=== PATIENT | female | born 1960 | race African-American/Black ===

== ENCOUNTER 2016-06-24 10:49 | Day surgery (SDC) | payer OTHER ==
[~2016-06-24 10:49] MED LIST: AMOXICILLIN500 MG PO; BENADRYL50 MG PO; BYSTOLIC10 MG PO; CARDIZEM CD,CA180 MG PO; CARDIZEM120 MG PO; CATAPRES0.2 MG PO; CLONIDINE HCL0.1 MG PO; CLONIDINE HCL0.2 MG PO; CLONIDINE HCL0.3 MG PO; COREG25 M1 PO; DIALYVITE 3,001 EACH PO; DOXAZOSIN MESYLA4 MG PO; LABETALOL HCL200 MG PO; MEGACE40 MG PO; MEGESTROL ACETA40 MG PO; METOCLOPRAMIDE10 MG PO; NIFEDIPINE ER60 MG PO; NIFEDIPINE ER90 M1 PO; PERCOCET 5/31 TABLET PO; RENVELA800 MG PO; SENSIPAR60 MG PO; VENTOLIN HFA18 GM IH; WARFARIN SODIUM5 MG PO; ZITHROMAX250 MG PO
[2016-06-24 12:58] LABS: METH RESISTANT S AUREUS PCR NEGATIVE (NEGATIVE)
[2016-06-24 12:59] LABS: PROBE CHECK PASS; SPECIMEN PROCESSING CONTROL PASS
== END 2016-06-24 15:45 | disposition home or self-care (01) ==
LOC: CATH 10:49
PROVIDERS: Surgery
DX: T82.868A Thrombosis due to vascular prosthetic devices, implants and grafts, initial encounter (principal); T82.858A Stenosis of other vascular prosthetic devices, implants and grafts, initial encounter; Y83.2 Surgical operation with anastomosis, bypass or graft as the cause of abnormal reaction of the patient, or of later complication, without mention of misadventure at the time of the procedure; I12.0 Hypertensive chronic kidney disease with stage 5 chronic kidney disease or end stage renal disease; N18.6 End stage renal disease; Z99.2 Dependence on renal dialysis; Z88.8 Allergy status to other drugs, medicaments and biological substances
CPT/HCPCS: 87641; C1725; C1757; C1769; C1894; C2628; J0360; J0690; J1644; J2250; J3010; S0020

== ENCOUNTER 2016-11-11 09:43 | Inpatient (IN) | payer OTHER ==
[~2016-11-11] VITALS: Ht 152.4 cm; Wt 59.2 kg
[2016-11-11 10:24] LABS: EOSINOPHIL (%) 1.6 % (0-5); EOSINOPHIL COUNT 0.1 K/uL (0-0.3); HEMATOCRIT 37.4 % (36.0-46.0); IMMATURE GRANULOCYTE (%) 0.5 % (0.0-0.7); INSTRUMENT ABS NEUTROPHIL CT 7.3 K/uL; LYMPHOCYTE COUNT 0.5 K/uL (1.0-2.8); MCH 28.1 PG (29.0-34.0); MCHC 32.4 G/DL (30.0-36.0); MEAN PLAT.VOLUME 11.9 uM^3 (9.5-12.4); MONOCYTE (%) 2.2 % (3-12); MONOCYTE COUNT 0.2 K/uL (0-0.8); NEUTROPHIL (%) 89.5 % (45-76); NEUTROPHIL COUNT 7.3 K/uL (1.8-6.4); PLATELET COUNT 119 K/uL (156-360); RBC DIS.WIDTH-CV 17.7 % (11.8-14.6); RBC DIS.WIDTH-SD 55.9 % (39-53); WHITE BLOOD COUNT 8.2 K/uL (4.1-10.2)
[2016-11-11 10:30] LABS: INTER. NORMALIZED RATIO 1.4
[2016-11-11 10:32] LABS: PTT 45.2 SEC (25-37)
[2016-11-11 10:33] LABS: CHLORIDE 96 mEq/L (99-109); POTASSIUM 4.2 mEq/L (3.7-5.4); SODIUM 138 mEq/L (136-147)
[2016-11-11 10:35] LABS: GLUCOSE 73 mg/dL (70-99)
[2016-11-11 10:36] LABS: ANION GAP 17 MEQ/L (2-14)
[2016-11-11 10:39] LABS: ALKALINE PHOSPHATASE 181 IU/L (3-129); GFR ESTIMATE (CALCULATED) 9 mL/min/
[2016-11-11 10:40] LABS: UREA NITROGEN (BUN) 53 mg/dL (9-23)
[2016-11-11 10:48] LABS: TROP-I INTERPRETATION NEGATIVE; TROPONIN-I 0.06 ng/mL (0.0-0.30)
[2016-11-11 13:42] LABS: MAGNESIUM 2.2 mg/dL (1.3-2.7)
[2016-11-11] MEDS ORDERED: LABETALOL HCL100 MG PO (14:08)
[2016-11-11] MEDS ORDERED: FLOVENT 11120 INHALA IH (14:11)
[2016-11-11 16:13] VITALS: BP 158/98
[2016-11-11 16:21] VITALS: BP 115/80
[2016-11-11 19:15] VITALS: BP 103/76
[2016-11-12] VITALS (7 sets, daily range): BP systolic 82–152; BP diastolic 60–80
[2016-11-12 12:40] LABS: HEMATOCRIT 34.6 % (36.0-46.0); MCH 28.4 PG (29.0-34.0); MCHC 31.8 G/DL (30.0-36.0); MCV 89.2 FL (83-99); PLATELET COUNT 103 K/uL (156-360); RBC DIS.WIDTH-CV 18.5 % (11.8-14.6); RBC DIS.WIDTH-SD 59.7 % (39-53); RED BLOOD COUNT 3.88 M/uL (3.80-5.20)
[2016-11-12 12:48] LABS: ANION GAP 11 MEQ/L (2-14); CHLORIDE 95 MEQ/L (99-109); SAMPLE HEMOLYSIS CHECK 0; SAMPLE ICTERIC CHECK 0; SAMPLE LIPEMIA CHECK 0; SODIUM 133 MEQ/L (136-147); UREA NITROGEN (BUN) 69 mg/dL (9-23)
[2016-11-12 12:50] LABS: GFR ESTIMATE (CALCULATED) 8 mL/min/; GLUCOSE 133 mg/dL (70-99); POTASSIUM 5.6 MEQ/L (3.7-5.4)
[2016-11-12 12:52] LABS: ABS NEUTROPHIL COUNT 10.5; ANISOCYTOSIS 2+; BAND NEUTROPHILS 15.6 % (0-8.0); BURR CELLS 2+; EOSINOPHIL ABS CT 0.1; EOSINOPHILS 0.9 % (0-5.0); LYMPHOCYTES 0.9 % (15.0-45.0); MACROCYTES 2+; OVALOCYTES 2+; PLAT.SUFFICIENCY DECREASED; POIKILOCYTOSIS 3+; TARGET CELLS 1+
[2016-11-12 19:58] LABS: ADD MIUA? YES; BILIRUBIN NEGATIVE; BLOOD NEGATIVE; COLOR YELLOW ((YELLOW)); GLUCOSE (STRIP) NEGATIVE; KETONES NEGATIVE; LEUKOCYTES NEGATIVE; NITRITE NEGATIVE; PROTEIN (STRIP) 100; SPECIFIC GRAVITY 1.012 (1.000-1.030); UROBILINOGEN 0.2 MG/DL (0.2-1.0)
[2016-11-12 20:21] LABS: BACTERIA RARE /HPF; EPITHELIAL CELLS 1+ /HPF; MUCUS TRACE /LPF; RED BLOOD CELLS 0-5 /HPF (0-5); UCUL ADDED? NO; WHITE BLOOD CELLS 0-5 /HPF (0-5)
[2016-11-13] VITALS (9 sets, daily range): BP systolic 94–170; BP diastolic 57–104
[2016-11-13 08:01] LABS: EOSINOPHIL (%) 8.7 % (0-5); EOSINOPHIL COUNT 0.7 K/uL (0-0.3); HEMATOCRIT 31.5 % (36.0-46.0); IMMATURE GRANULOCYTE (%) 0.5 % (0.0-0.7); INSTRUMENT ABS NEUTROPHIL CT 5.1 K/uL; LYMPHOCYTE COUNT 0.9 K/uL (1.0-2.8); MCH 29.2 PG (29.0-34.0); MCHC 32.7 G/DL (30.0-36.0); MCV 89.2 FL (83-99); MONOCYTE (%) 10.9 % (3-12); MONOCYTE COUNT 0.8 K/uL (0-0.8); NEUTROPHIL (%) 67.3 % (45-76); NEUTROPHIL COUNT 5.1 K/uL (1.8-6.4); RBC DIS.WIDTH-CV 18.4 % (11.8-14.6); RBC DIS.WIDTH-SD 60.1 % (39-53); RED BLOOD COUNT 3.53 M/uL (3.80-5.20); WHITE BLOOD COUNT 7.6 K/uL (4.1-10.2)
[2016-11-13 08:28] LABS: ANION GAP 13 MEQ/L (2-14); CHLORIDE 95 MEQ/L (99-109); GLUCOSE 160 mg/dL (70-99); SAMPLE HEMOLYSIS CHECK 0; SAMPLE ICTERIC CHECK 0; SAMPLE LIPEMIA CHECK 0; SODIUM 134 MEQ/L (136-147)
[2016-11-13 08:32] LABS: GFR ESTIMATE (CALCULATED) 13 mL/min/; POTASSIUM 3.7 MEQ/L (3.7-5.4); UREA NITROGEN (BUN) 32 mg/dL (9-23)
[2016-11-13 08:35] LABS: MEAN PLAT.VOLUME 13.6 uM^3 (9.5-12.4); PLAT.SUFFICIENCY DECREASED; PLATELET COUNT 102 K/uL (156-360)
[2016-11-13 13:35] LABS: INTER. NORMALIZED RATIO 1.4; PROTHROMBIN TIME 15.2 SEC (10.2-12.9)
[2016-11-14] VITALS (9 sets, daily range): BP systolic 128–194; BP diastolic 80–102
[2016-11-14 06:33] LABS: INTER. NORMALIZED RATIO 1.3
[2016-11-14 13:39] LABS: ANION GAP 12 MEQ/L (2-14); CHLORIDE 95 MEQ/L (99-109); SAMPLE HEMOLYSIS CHECK 0; SAMPLE ICTERIC CHECK 0; SAMPLE LIPEMIA CHECK 0; SODIUM 134 MEQ/L (136-147)
[2016-11-14 13:44] LABS: GFR ESTIMATE (CALCULATED) 13 mL/min/; GLUCOSE 131 mg/dL (70-99); UREA NITROGEN (BUN) 32 mg/dL (9-23)
[2016-11-14 17:06] LABS: BASE EXCESS 1.8 mEq/L (-3 to +3); BICARBONATE 27.2 mEq/L (22-26); METHEMOGLOBIN 1.3 % (0-1.5); PCO2 45 mm Hg (35-45); PO2 56 mm Hg (80-100); pH 7.39 (7.35-7.45)
[2016-11-14 17:07] LABS: COMMENTS - BLOOD GASES A+C+; DEVICE NC; O2 FLOW 3.5 L/MIN; SITE RR; TOTAL RESP RATE 22 resp/min
[2016-11-14 17:11] LABS: HEMATOCRIT 37.2 % (36.0-46.0); MCV 91.9 FL (83-99)
[2016-11-14 17:46] LABS: TROP-I INTERPRETATION NEGATIVE; TROPONIN-I 0.06 ng/mL (0.0-0.30)
[2016-11-14 20:22] LABS: TROP-I INTERPRETATION NEGATIVE; TROPONIN-I 0.05 ng/mL (0.0-0.30)
[2016-11-15 00:23] VITALS: BP 95/60
[2016-11-15 02:22] LABS: TROP-I INTERPRETATION NEGATIVE; TROPONIN-I 0.04 ng/mL (0.0-0.30)
[2016-11-15 02:35] LABS: INTER. NORMALIZED RATIO 1.4; PROTHROMBIN TIME 15.1 SEC (10.2-12.9)
[2016-11-15 05:42] VITALS: BP 165/88
[2016-11-15 08:00] VITALS: BP 163/79
[2016-11-15 09:32] LABS: TROP-I INTERPRETATION NEGATIVE; TROPONIN-I 0.07 ng/mL (0.0-0.30)
[2016-11-15 09:57] LABS: HEMATOCRIT 31.4 % (36.0-46.0); MCHC 31.8 G/DL (30.0-36.0); RBC DIS.WIDTH-CV 17.8 % (11.8-14.6); RBC DIS.WIDTH-SD 56.6 % (39-53); RED BLOOD COUNT 3.57 M/uL (3.80-5.20); WHITE BLOOD COUNT 10.7 K/uL (4.1-10.2)
[2016-11-15 10:17] LABS: ABS NEUTROPHIL COUNT 7.9; ANISOCYTOSIS 2+; ATYPICAL LYMPHOCYTE 0.9 %; BAND NEUTROPHILS 7.1 % (0-8.0); BURR CELLS 2+; EOSINOPHILS 9.7 % (0-5.0); HEMATOLOGY COMMENT 1 SN; INSTRUMENT ABS NEUTROPHIL CT 7.7 K/uL; LYMPHOCYTES 11.5 % (15.0-45.0); MACROCYTES 1+; OVALOCYTES 1+; PLAT.SUFFICIENCY DECREASED; PLATELET COUNT 80 K/uL (156-360); POIKILOCYTOSIS 1+; SCHISTOCYTES 1+; SEG.NEUTROPHILS 66.4 % (46.0-76.0)
[2016-11-15 13:40] LABS: ANION GAP 12 MEQ/L (2-14); CHLORIDE 93 MEQ/L (99-109); POTASSIUM 4.3 MEQ/L (3.7-5.4); SAMPLE HEMOLYSIS CHECK 0; SAMPLE ICTERIC CHECK 0; SAMPLE LIPEMIA CHECK 0; SODIUM 130 MEQ/L (136-147)
[2016-11-15 13:47] LABS: GFR ESTIMATE (CALCULATED) 9 mL/min/; GLUCOSE 141 mg/dL (70-99)
[2016-11-15 13:48] LABS: UREA NITROGEN (BUN) 50 mg/dL (9-23)
[2016-11-15 16:54] VITALS: BP 158/92
[2016-11-15 19:35] VITALS: BP 160/82
[2016-11-15 23:09] VITALS: BP 122/71
[2016-11-16 04:05] VITALS: BP 138/78
[2016-11-16 05:58] LABS: INTER. NORMALIZED RATIO 1.5; PROTHROMBIN TIME 16.2 SEC (10.2-12.9)
[2016-11-16 06:18] LABS: EOSINOPHIL (%) 7.4 % (0-5); EOSINOPHIL COUNT 0.8 K/uL (0-0.3); HEMATOCRIT 29.2 % (36.0-46.0); IMMATURE GRANULOCYTE (%) 0.5 % (0.0-0.7); IMMATURE GRANULOCYTE COUNT 0.1 K/uL; LYMPHOCYTE COUNT 0.9 K/uL (1.0-2.8); MCH 29.5 PG (29.0-34.0); MCHC 33.9 G/DL (30.0-36.0); MCV 86.9 FL (83-99); MONOCYTE (%) 11.5 % (3-12); MONOCYTE COUNT 1.3 K/uL (0-0.8); NEUTROPHIL (%) 71.9 % (45-76); RBC DIS.WIDTH-SD 56.7 % (39-53); RED BLOOD COUNT 3.36 M/uL (3.80-5.20); WHITE BLOOD COUNT 11.2 K/uL (4.1-10.2)
[2016-11-16 06:24] LABS: ANION GAP 11 MEQ/L (2-14); CHLORIDE 95 MEQ/L (99-109); GFR ESTIMATE (CALCULATED) 15 mL/min/; POTASSIUM 4.2 MEQ/L (3.7-5.4); SAMPLE HEMOLYSIS CHECK 0; SAMPLE ICTERIC CHECK 0; SAMPLE LIPEMIA CHECK 0; SODIUM 132 MEQ/L (136-147); UREA NITROGEN (BUN) 26 mg/dL (9-23)
[2016-11-16 06:25] LABS: GLUCOSE 96 mg/dL (70-99)
[2016-11-16 07:34] LABS: PLAT.SUFFICIENCY DECREASED; PLATELET COUNT 88 K/uL (156-360)
[2016-11-16 08:00] VITALS: BP 144/82
[2016-11-16 14:22] VITALS: BP 98/56
[2016-11-16 16:52] VITALS: BP 114/73
[2016-11-16 20:06] VITALS: BP 132/76
[2016-11-16 23:18] VITALS: BP 115/71
[2016-11-17 03:25] VITALS: BP 117/75
[2016-11-17 06:47] LABS: INTER. NORMALIZED RATIO 1.7; PROTHROMBIN TIME 18.9 SEC (10.2-12.9)
[2016-11-17 07:33] VITALS: BP 129/66
[2016-11-17 16:56] VITALS: BP 125/76
[2016-11-17 21:15] VITALS: BP 138/81
[2016-11-17 23:41] VITALS: BP 98/62
[2016-11-18 04:00] VITALS: BP 139/62
[2016-11-18 04:41] LABS: INTER. NORMALIZED RATIO 2.6
[2016-11-18 04:58] LABS: PROTHROMBIN TIME 30.2 SEC (10.2-12.9)
[2016-11-18 04:59] LABS: TROP-I INTERPRETATION NEGATIVE
[2016-11-18 05:14] LABS: CHLORIDE 91 mEq/L (99-109); SODIUM 126 mEq/L (136-147)
[2016-11-18 05:15] LABS: MAGNESIUM 2.1 mg/dL (1.3-2.7)
[2016-11-18 05:17] LABS: GLUCOSE 113 mg/dL (70-99); POTASSIUM 5.7 mEq/L (3.7-5.4)
[2016-11-18 05:18] LABS: ANION GAP 15 MEQ/L (2-14)
[2016-11-18 05:20] LABS: GFR ESTIMATE (CALCULATED) 8 mL/min/
[2016-11-18 05:24] LABS: UREA NITROGEN (BUN) 57 mg/dL (9-23)
[2016-11-18 07:05] LABS: BASOPHIL COUNT 0.1 K/uL (0-0.1); EOSINOPHIL (%) 6.4 % (0-5); EOSINOPHIL COUNT 0.6 K/uL (0-0.3); HEMATOCRIT 27.6 % (36.0-46.0); IMMATURE GRANULOCYTE (%) 2.3 % (0.0-0.7); IMMATURE GRANULOCYTE COUNT 0.2 K/uL; INSTRUMENT ABS NEUTROPHIL CT 6.6 K/uL; LYMPHOCYTE COUNT 1.5 K/uL (1.0-2.8); MCH 29.5 PG (29.0-34.0); MCHC 34.8 G/DL (30.0-36.0); MCV 84.9 FL (83-99); MONOCYTE (%) 9.9 % (3-12); NEUTROPHIL COUNT 6.6 K/uL (1.8-6.4); RBC DIS.WIDTH-CV 17.8 % (11.8-14.6); RBC DIS.WIDTH-SD 54.8 % (39-53); RED BLOOD COUNT 3.25 M/uL (3.80-5.20)
[2016-11-18 07:13] LABS: ANION GAP 14 MEQ/L (2-14); CHLORIDE 90 MEQ/L (99-109); GFR ESTIMATE (CALCULATED) 8 mL/min/; GLUCOSE 93 mg/dL (70-99); SAMPLE HEMOLYSIS CHECK 0; SAMPLE ICTERIC CHECK 0; SAMPLE LIPEMIA CHECK 0; SODIUM 126 MEQ/L (136-147); UREA NITROGEN (BUN) 59 mg/dL (9-23)
[2016-11-18 07:25] VITALS: BP 110/68
[2016-11-18 07:41] LABS: HEMATOLOGY COMMENT 1 SMEAR COMPATIBLE; PLAT.SUFFICIENCY DECREASED
[2016-11-18 07:43] LABS: PLATELET COUNT 115 K/uL (156-360)
[2016-11-18 12:07] LABS: ANION GAP 12 MEQ/L (2-14); CHLORIDE 96 MEQ/L (99-109); GLUCOSE 84 mg/dL (70-99); SAMPLE HEMOLYSIS CHECK 0; SAMPLE ICTERIC CHECK 0; SAMPLE LIPEMIA CHECK 0
[2016-11-18 12:09] LABS: GFR ESTIMATE (CALCULATED) 25 mL/min/; POTASSIUM 3.2 MEQ/L (3.7-5.4); SODIUM 135 MEQ/L (136-147); UREA NITROGEN (BUN) 15 mg/dL (9-23)
[2016-11-18 13:28] LABS: ANION GAP 12 MEQ/L (2-14); CHLORIDE 97 MEQ/L (99-109); GFR ESTIMATE (CALCULATED) 20 mL/min/; GLUCOSE 89 mg/dL (70-99); POTASSIUM 3.6 MEQ/L (3.7-5.4); SAMPLE HEMOLYSIS CHECK 0; SAMPLE ICTERIC CHECK 0; SAMPLE LIPEMIA CHECK 0; SODIUM 136 MEQ/L (136-147); UREA NITROGEN (BUN) 18 mg/dL (9-23)
[2016-11-18 16:51] VITALS: BP 112/60; BP 164/94
[2016-11-18 20:00] VITALS: BP 143/79
[2016-11-18 23:13] VITALS: BP 143/76
[2016-11-19 06:53] LABS: INTER. NORMALIZED RATIO 3.1; PROTHROMBIN TIME 35.4 SEC (10.2-12.9)
[2016-11-19 07:14] VITALS: BP 123/70
[2016-11-19 11:37] VITALS: BP 110/68
[2016-11-19 16:03] VITALS: BP 117/68
[2016-11-19 20:19] VITALS: BP 108/64
[2016-11-20 00:31] VITALS: BP 99/56
[2016-11-20 04:20] VITALS: BP 119/65
[2016-11-20 08:30] LABS: INTER. NORMALIZED RATIO 2.6; PROTHROMBIN TIME 29.4 SEC (10.2-12.9)
[2016-11-20 08:37] LABS: HEMATOCRIT 25.5 % (36.0-46.0); MCH 28.4 PG (29.0-34.0); MCHC 32.9 G/DL (30.0-36.0); MCV 86.1 FL (83-99); RBC DIS.WIDTH-CV 18.1 % (11.8-14.6); RBC DIS.WIDTH-SD 55.8 % (39-53); RED BLOOD COUNT 2.96 M/uL (3.80-5.20); WHITE BLOOD COUNT 10.4 K/uL (4.1-10.2)
[2016-11-20 08:38] LABS: MEAN PLAT.VOLUME 11.6 uM^3 (9.5-12.4); PLATELET COUNT 160 K/uL (156-360)
[2016-11-20 08:48] LABS: BASOPHIL COUNT 0.1 K/uL (0-0.1); EOSINOPHIL COUNT 0.7 K/uL (0-0.3); IMMATURE GRANULOCYTE (%) 1.2 % (0.0-0.7); IMMATURE GRANULOCYTE COUNT 0.1 K/uL; INSTRUMENT ABS NEUTROPHIL CT 7.4 K/uL; LYMPHOCYTE COUNT 1.3 K/uL (1.0-2.8); MONOCYTE COUNT 0.8 K/uL (0-0.8); NEUTROPHIL (%) 70.6 % (45-76); NEUTROPHIL COUNT 7.4 K/uL (1.8-6.4)
[2016-11-20 09:10] LABS: ANION GAP 12 MEQ/L (2-14); CHLORIDE 92 MEQ/L (99-109); GFR ESTIMATE (CALCULATED) 8 mL/min/; POTASSIUM 3.6 MEQ/L (3.7-5.4); SAMPLE HEMOLYSIS CHECK 0; SAMPLE ICTERIC CHECK 0; SAMPLE LIPEMIA CHECK 0; SODIUM 130 MEQ/L (136-147)
[2016-11-20 09:16] LABS: GLUCOSE 113 mg/dL (70-99); UREA NITROGEN (BUN) 43 mg/dL (9-23)
[2016-11-20 15:29] VITALS: BP 124/68
[2016-11-20 20:05] VITALS: BP 118/66
[2016-11-21 00:10] VITALS: BP 110/64
[2016-11-21 05:23] VITALS: BP 117/70
[2016-11-21 06:16] LABS: INTER. NORMALIZED RATIO 2.4; PROTHROMBIN TIME 26.8 SEC (10.2-12.9)
[2016-11-21 08:31] VITALS: BP 120/67
[2016-11-21 11:00] VITALS: BP 124/71
[2016-11-21 16:23] VITALS: BP 120/62
[2016-11-21 20:39] VITALS: BP 117/63
[2016-11-22 00:21] VITALS: BP 95/53
[2016-11-22 04:19] VITALS: BP 101/51
[2016-11-22 08:30] VITALS: BP 121/66
[2016-11-22 10:10] LABS: BASOPHIL COUNT 0.1 K/uL (0-0.1); EOSINOPHIL (%) 4.7 % (0-5); EOSINOPHIL COUNT 0.6 K/uL (0-0.3); IMMATURE GRANULOCYTE COUNT 0.1 K/uL; INSTRUMENT ABS NEUTROPHIL CT 9.6 K/uL; MCH 28.9 PG (29.0-34.0); MCHC 33.2 G/DL (30.0-36.0); MCV 87.1 FL (83-99); MEAN PLAT.VOLUME 11.9 uM^3 (9.5-12.4); NEUTROPHIL (%) 77.5 % (45-76); NEUTROPHIL COUNT 9.6 K/uL (1.8-6.4); RBC DIS.WIDTH-CV 18.2 % (11.8-14.6); RBC DIS.WIDTH-SD 57.2 % (39-53); RED BLOOD COUNT 2.87 M/uL (3.80-5.20); WHITE BLOOD COUNT 12.3 K/uL (4.1-10.2)
[2016-11-22 10:12] LABS: PLATELET COUNT 221 K/uL (156-360)
[2016-11-22 10:16] LABS: ANION GAP 13 MEQ/L (2-14); CHLORIDE 92 MEQ/L (99-109); GFR ESTIMATE (CALCULATED) 9 mL/min/; GLUCOSE 90 mg/dL (70-99); SAMPLE HEMOLYSIS CHECK 1; SAMPLE ICTERIC CHECK 0; SAMPLE LIPEMIA CHECK 0; SODIUM 128 MEQ/L (136-147); UREA NITROGEN (BUN) 48 mg/dL (9-23)
[2016-11-22 10:20] LABS: POTASSIUM 4.8 MEQ/L (3.7-5.4)
[2016-11-22 10:24] LABS: INTER. NORMALIZED RATIO 2.6; PROTHROMBIN TIME 29.4 SEC (10.2-12.9)
[2016-11-22 15:00] VITALS: BP 106/65
[2016-11-22 19:15] VITALS: BP 121/60; BP 2/60
[2016-11-23] VITALS (7 sets, daily range): BP systolic 80–131; BP diastolic 52–82
[2016-11-23 06:29] LABS: BASOPHIL COUNT 0.1 K/uL (0-0.1); EOSINOPHIL (%) 3.4 % (0-5); EOSINOPHIL COUNT 0.4 K/uL (0-0.3); HEMATOCRIT 27.3 % (36.0-46.0); IMMATURE GRANULOCYTE (%) 0.7 % (0.0-0.7); IMMATURE GRANULOCYTE COUNT 0.1 K/uL; INSTRUMENT ABS NEUTROPHIL CT 9.7 K/uL; LYMPHOCYTE COUNT 1.1 K/uL (1.0-2.8); MCH 28.4 PG (29.0-34.0); MCHC 32.2 G/DL (30.0-36.0); MCV 88.1 FL (83-99); MEAN PLAT.VOLUME 11.7 uM^3 (9.5-12.4); MONOCYTE (%) 7.6 % (3-12); MONOCYTE COUNT 0.9 K/uL (0-0.8); NEUTROPHIL COUNT 9.7 K/uL (1.8-6.4); PLATELET COUNT 265 K/uL (156-360); RBC DIS.WIDTH-CV 18.4 % (11.8-14.6); RBC DIS.WIDTH-SD 58.5 % (39-53); WHITE BLOOD COUNT 12.3 K/uL (4.1-10.2)
[2016-11-23 06:36] LABS: INTER. NORMALIZED RATIO 2.9; PROTHROMBIN TIME 33.7 SEC (10.2-12.9)
[2016-11-23 06:59] LABS: ANION GAP 11 MEQ/L (2-14); CHLORIDE 93 MEQ/L (99-109); GLUCOSE 104 mg/dL (70-99); SAMPLE HEMOLYSIS CHECK 0; SAMPLE ICTERIC CHECK 0; SAMPLE LIPEMIA CHECK 0; SODIUM 130 MEQ/L (136-147); UREA NITROGEN (BUN) 43 mg/dL (9-23)
[2016-11-23 07:00] LABS: GFR ESTIMATE (CALCULATED) 12 mL/min/; POTASSIUM 5.8 MEQ/L (3.7-5.4)
[2016-11-24] VITALS: BP 99/59
[2016-11-24 04:00] VITALS: BP 114/56
[2016-11-24 06:34] LABS: INTER. NORMALIZED RATIO 2.7; PROTHROMBIN TIME 30.6 SEC (10.2-12.9)
[2016-11-24 07:34] VITALS: BP 110/72
[2016-11-24 08:51] LABS: BASOPHIL COUNT 0.1 K/uL (0-0.1); EOSINOPHIL (%) 5.7 % (0-5); EOSINOPHIL COUNT 0.6 K/uL (0-0.3); HEMATOCRIT 26.7 % (36.0-46.0); IMMATURE GRANULOCYTE (%) 0.9 % (0.0-0.7); IMMATURE GRANULOCYTE COUNT 0.1 K/uL; INSTRUMENT ABS NEUTROPHIL CT 7.1 K/uL; LYMPHOCYTE COUNT 1.6 K/uL (1.0-2.8); MCH 29.2 PG (29.0-34.0); MCV 88.7 FL (83-99); MEAN PLAT.VOLUME 13.1 uM^3 (9.5-12.4); MONOCYTE (%) 8.7 % (3-12); MONOCYTE COUNT 0.9 K/uL (0-0.8); NEUTROPHIL (%) 68.5 % (45-76); NEUTROPHIL COUNT 7.1 K/uL (1.8-6.4); PLATELET COUNT 261 K/uL (156-360); RBC DIS.WIDTH-CV 18.4 % (11.8-14.6); RBC DIS.WIDTH-SD 58.7 % (39-53); RED BLOOD COUNT 3.01 M/uL (3.80-5.20); WHITE BLOOD COUNT 10.4 K/uL (4.1-10.2)
[2016-11-24 09:09] LABS: ANION GAP 13 MEQ/L (2-14); CHLORIDE 89 MEQ/L (99-109); GLUCOSE 94 mg/dL (70-99); SAMPLE HEMOLYSIS CHECK 0; SAMPLE ICTERIC CHECK 0; SAMPLE LIPEMIA CHECK 0; SODIUM 125 MEQ/L (136-147); UREA NITROGEN (BUN) 60 mg/dL (9-23)
[2016-11-24 09:14] LABS: GFR ESTIMATE (CALCULATED) 8 mL/min/; POTASSIUM 6.6 MEQ/L (3.7-5.4)
[2016-11-24 11:28] VITALS: BP 127/69
[2016-11-24 14:08] LABS: ALKALINE PHOSPHATASE 279 IU/L (3-129); ANION GAP 17 MEQ/L (2-14); CHLORIDE 89 MEQ/L (99-109); GFR ESTIMATE (CALCULATED) 8 mL/min/; POTASSIUM 5.5 MEQ/L (3.7-5.4); SAMPLE HEMOLYSIS CHECK 0; SAMPLE ICTERIC CHECK 0; SAMPLE LIPEMIA CHECK 0; SODIUM 128 MEQ/L (136-147); TOTAL BILIRUBIN 0.7 MG/DL (0.0-1.0); UREA NITROGEN (BUN) 62 mg/dL (9-23)
[2016-11-24 14:09] LABS: GLUCOSE 56 mg/dL (70-99)
[2016-11-24 15:06] LABS: POINT-OF-CARE METER ID UU13113774
[2016-11-24 15:48] VITALS: BP 133/91
[2016-11-24 20:34] VITALS: BP 123/69
[2016-11-25] VITALS (7 sets, daily range): BP systolic 101–129; BP diastolic 64–79
[2016-11-25 08:56] LABS: BASOPHIL COUNT 0.1 K/uL (0-0.1); EOSINOPHIL (%) 5.2 % (0-5); EOSINOPHIL COUNT 0.5 K/uL (0-0.3); HEMATOCRIT 24.7 % (36.0-46.0); IMMATURE GRANULOCYTE (%) 0.7 % (0.0-0.7); IMMATURE GRANULOCYTE COUNT 0.1 K/uL; INSTRUMENT ABS NEUTROPHIL CT 7.4 K/uL; MCHC 32.4 G/DL (30.0-36.0); MCV 86.4 FL (83-99); MONOCYTE (%) 7.3 % (3-12); MONOCYTE COUNT 0.7 K/uL (0-0.8); NEUTROPHIL (%) 75.9 % (45-76); NEUTROPHIL COUNT 7.4 K/uL (1.8-6.4); PLATELET COUNT 308 K/uL (156-360); RBC DIS.WIDTH-CV 17.6 % (11.8-14.6); RBC DIS.WIDTH-SD 55.3 % (39-53); RED BLOOD COUNT 2.86 M/uL (3.80-5.20); WHITE BLOOD COUNT 9.7 K/uL (4.1-10.2)
[2016-11-25 09:13] LABS: INTER. NORMALIZED RATIO 3.6; PROTHROMBIN TIME 42.1 SEC (10.2-12.9)
[2016-11-25 09:15] LABS: ANION GAP 15 MEQ/L (2-14); CHLORIDE 87 MEQ/L (99-109); GFR ESTIMATE (CALCULATED) 7 mL/min/; POTASSIUM 5.3 MEQ/L (3.7-5.4); SAMPLE HEMOLYSIS CHECK 0; SAMPLE ICTERIC CHECK 0; SAMPLE LIPEMIA CHECK 0; SODIUM 126 MEQ/L (136-147); UREA NITROGEN (BUN) 73 mg/dL (9-23)
[2016-11-25 09:18] LABS: GLUCOSE 91 mg/dL (70-99)
[2016-11-25 11:57] LABS: HBSG INDEX 0.19
[2016-11-26 07:05] LABS: INTER. NORMALIZED RATIO 2.7; PROTHROMBIN TIME 30.7 SEC (10.2-12.9)
[2016-11-26 07:07] LABS: BASOPHIL COUNT 0.1 K/uL (0-0.1); EOSINOPHIL (%) 4.8 % (0-5); EOSINOPHIL COUNT 0.4 K/uL (0-0.3); HEMATOCRIT 26.6 % (36.0-46.0); IMMATURE GRANULOCYTE (%) 0.5 % (0.0-0.7); INSTRUMENT ABS NEUTROPHIL CT 5.9 K/uL; LYMPHOCYTE COUNT 1.1 K/uL (1.0-2.8); MCH 28.6 PG (29.0-34.0); MCHC 31.6 G/DL (30.0-36.0); MEAN PLAT.VOLUME 11.7 uM^3 (9.5-12.4); MONOCYTE (%) 8.8 % (3-12); MONOCYTE COUNT 0.7 K/uL (0-0.8); NEUTROPHIL COUNT 5.9 K/uL (1.8-6.4); PLATELET COUNT 339 K/uL (156-360); RBC DIS.WIDTH-CV 18.2 % (11.8-14.6); RBC DIS.WIDTH-SD 59.5 % (39-53); RED BLOOD COUNT 2.94 M/uL (3.80-5.20); WHITE BLOOD COUNT 8.3 K/uL (4.1-10.2)
[2016-11-26 07:08] LABS: MCV 90.5 FL (83-99)
[2016-11-26 07:27] LABS: ANION GAP 13 MEQ/L (2-14); GLUCOSE 98 mg/dL (70-99); POTASSIUM 5.2 MEQ/L (3.7-5.4); SAMPLE HEMOLYSIS CHECK 0; SAMPLE ICTERIC CHECK 0; SAMPLE LIPEMIA CHECK 0
[2016-11-26 07:32] LABS: CHLORIDE 96 MEQ/L (99-109); GFR ESTIMATE (CALCULATED) 12 mL/min/; SODIUM 134 MEQ/L (136-147); UREA NITROGEN (BUN) 33 mg/dL (9-23)
[2016-11-26 07:45] VITALS: BP 109/60
[2016-11-26 11:30] VITALS: BP 115/77
[2016-11-26] MEDS ORDERED: LABETALOL HCL200 MG PO (11:43)
[2016-11-26] MEDS ORDERED: COUMADIN2 MG PO (11:46)
[2016-11-26] MEDS ORDERED: ANCEF,KEFZOL1 GM IV (11:46)
[2016-11-26] MEDS ORDERED: VORICONAZOLE200 MG PO (11:46)
== END 2016-11-26 14:38 | disposition home or self-care (01) | DRG 252 ==
LOC: EME → EDBD 09:43 → 4EAST 12:56 → EDOF 12:56 → ENRESERV 12:58 → 4EAST 15:24 → ENRESERV 11-13 13:43 → 3EAST 11-13 17:52 → ENRESERV 11-14 17:00 → 4EAST 11-14 18:04 → ENRESERV 11-16 14:07 → 5EAST 11-16 17:30 → ENPENDDIS 11-26 → 5EAST 11-26 14:38
PROVIDERS: Emergency Medicine; Hospitalist; Internal Medicine Nephrology; Physician Assistant; Student in an Organized Health Care Education/Training Program
PROC: 5A1D70Z Performance of Urinary Filtration, Intermittent, Less than 6 Hours Per Day (ICD-10-PCS; 2016-11-12)
PROC: 02HV33Z Insertion of Infusion Device into Superior Vena Cava, Percutaneous Approach (ICD-10-PCS; principal; 2016-11-15)
PROC: 03WY0JZ Revision of Synthetic Substitute in Upper Artery, Open Approach (ICD-10-PCS; 2016-11-18)
DX: T82.7XXA Infection and inflammatory reaction due to other cardiac and vascular devices, implants and grafts, initial encounter (principal); Y83.2 Surgical operation with anastomosis, bypass or graft as the cause of abnormal reaction of the patient, or of later complication, without mention of misadventure at the time of the procedure; A41.51 Sepsis due to Escherichia coli [E. coli]; B49 Unspecified mycosis; D69.6 Thrombocytopenia, unspecified; E87.5 Hyperkalemia; I13.2 Hypertensive heart and chronic kidney disease with heart failure and with stage 5 chronic kidney disease, or end stage renal disease; I27.20 Pulmonary hypertension, unspecified; I27.82 Chronic pulmonary embolism; I47.2 Ventricular tachycardia; I48.0 Paroxysmal atrial fibrillation; I48.2 Chronic atrial fibrillation; I50.32 Chronic diastolic (congestive) heart failure; J18.9 Pneumonia, unspecified organism; J96.01 Acute respiratory failure with hypoxia; N18.6 End stage renal disease; R65.20 Severe sepsis without septic shock; I95.3 Hypotension of hemodialysis; Z91.128 Patient's intentional underdosing of medication regimen for other reason; T45.516A Underdosing of anticoagulants, initial encounter; Z91.11 Patient's noncompliance with dietary regimen; Z99.2 Dependence on renal dialysis; H11.32 Conjunctival hemorrhage, left eye; E78.5 Hyperlipidemia, unspecified; M79.602 Pain in left arm; R10.84 Generalized abdominal pain; R11.2 Nausea with vomiting, unspecified; R16.2 Hepatomegaly with splenomegaly, not elsewhere classified; R42 Dizziness and giddiness; R51 Headache; F17.200 Nicotine dependence, unspecified, uncomplicated; Z79.01 Long term (current) use of anticoagulants; Z82.3 Family history of stroke; Z82.49 Family history of ischemic heart disease and other diseases of the circulatory system; Z88.1 Allergy status to other antibiotic agents
CPT/HCPCS: 36600; 71010; 71275; 74174; 74176; 76705; 80048; 80048 91; 80053; 80069; 80202; 81003; 82803; 82948; 83605; 83735; 84100; 84484; 85014; 85018; 85025; 85610; 85730; 86850; 86900; 86901; 87040; 87070; 87075; 87077; 87107; 87149; 87149 59; 87186; 87205; 87340; 87801; 93005; 93306; 93970; 94010; 94640; 94640 76; 94760; 94799; 97530 GO; 99202; 99281; 99284; C1752; C1757; C1768; C2628; J0610; J0690; J0696; J1200; J1644; J1940; J2250; J2405; J2720; J3010; J3370; J7030; J7050

== ENCOUNTER 2017-04-30 14:31 | Day surgery (SDC) | payer OTHER ==
[~2017-04-30] VITALS: Ht 154.9 cm; Wt 50.0 kg
[~2017-04-30 14:31] MED LIST changes: +ANCEF,KEFZOL1 GM IV; +COUMADIN2 MG PO; +FLOVENT 11120 INHALA IH; +LABETALOL HCL100 MG PO; +VFEND200 MG PO; +VORICONAZOLE200 MG PO
[2017-04-30] MEDS ORDERED: CEPHALEXIN500 MG PO (15:00)
[2017-04-30 15:32] LABS: HEMOGLOBIN 11.7 G/DL (11.9-15.5); MCH 30.5 PG (29.0-34.0); MCHC 33.4 G/DL (30.0-36.0); MCV 91.4 FL (83-99); PLATELET COUNT 167 K/uL (156-360); RBC DIS.WIDTH-CV 16.2 % (11.8-14.6); RBC DIS.WIDTH-SD 53.1 % (39-53); RED BLOOD COUNT 3.83 M/uL (3.80-5.20); WHITE BLOOD COUNT 7.1 K/uL (4.1-10.2)
[2017-04-30 15:47] VITALS: BP 137/85
[2017-04-30 15:50] LABS: CHLORIDE 92 mEq/L (99-109); SODIUM 138 mEq/L (136-147)
[2017-04-30 15:52] LABS: GLUCOSE 103 mg/dL (70-99)
[2017-04-30 15:56] LABS: CREATININE 4.5 mg/dL (0.6-1.3); GFR ESTIMATE (CALCULATED) 13 mL/min/
[2017-04-30 15:57] LABS: UREA NITROGEN (BUN) 32 mg/dL (9-23)
[2017-04-30 19:57] LABS: HEMATOCRIT 29.6 % (36.0-46.0); MCH 29.5 PG (29.0-34.0); MCHC 31.4 G/DL (30.0-36.0); PLATELET COUNT 154 K/uL (156-360); RBC DIS.WIDTH-CV 16.1 % (11.8-14.6); RBC DIS.WIDTH-SD 54.6 % (39-53); RED BLOOD COUNT 3.15 M/uL (3.80-5.20); WHITE BLOOD COUNT 7.2 K/uL (4.1-10.2)
[2017-04-30 19:58] LABS: HEMOGLOBIN 9.3 G/DL (11.9-15.5)
[2017-04-30 21:37] LABS: CHLORIDE 95 MEQ/L (99-109); CREATININE 4.6 MG/DL (0.6-1.3); GFR ESTIMATE (CALCULATED) 13 mL/min/; GLUCOSE 100 mg/dL (70-99); SODIUM 143 MEQ/L (136-147); UREA NITROGEN (BUN) 33 mg/dL (9-23)
[2017-04-30 21:38] LABS: POTASSIUM 3.7 MEQ/L (3.7-5.4)
[2017-04-30 22:28] VITALS: BP 164/96
[2017-05-01 03:48] VITALS: BP 111/69
[2017-05-01 06:57] LABS: BASOPHIL (%) 0.5 % (0-1); EOSINOPHIL (%) 4.8 % (0-5); HEMATOCRIT 26.4 % (36.0-46.0); HEMOGLOBIN 8.4 G/DL (11.9-15.5); LYMPHOCYTE (%) 11.3 % (15-42); MCH 30.1 PG (29.0-34.0); MCHC 31.8 G/DL (30.0-36.0); MCV 94.6 FL (83-99); NEUTROPHIL (%) 74.1 % (45-76); PLATELET COUNT 158 K/uL (156-360); RED BLOOD COUNT 2.79 M/uL (3.80-5.20); WHITE BLOOD COUNT 6.2 K/uL (4.1-10.2)
[2017-05-01 06:58] LABS: EOSINOPHIL COUNT 0.3 K/uL (0-0.3); IMMATURE GRANULOCYTE (%) 0.3 % (0.0-0.7); LYMPHOCYTE COUNT 0.7 K/uL (1.0-2.8); MONOCYTE COUNT 0.6 K/uL (0-0.8); NEUTROPHIL COUNT 4.6 K/uL (1.8-6.4)
[2017-05-01 07:07] VITALS: BP 134/87
[2017-05-01] MEDS ORDERED: KEFLEX500 MG PO (09:09)
[2017-05-01] MEDS ORDERED: ENDOCET 5-3251 EACH PO (09:09)
[2017-05-01 15:21] VITALS: BP 119/73
== END 2017-05-01 18:04 | disposition home or self-care (01) ==
LOC: SDC 14:31 → 2EAST 19:00 → 2SOUTH 19:00 → ENRESERV 19:09 → 2EAST 22:08 → ENPENDDIS 05-01 10:35 → 2EAST 05-01 18:04
PROVIDERS: Surgery
PROC: 05WY0JZ Revision of Synthetic Substitute in Upper Vein, Open Approach (ICD-10-PCS; principal; 2017-04-30)
DX: T82.868A Thrombosis due to vascular prosthetic devices, implants and grafts, initial encounter (principal); Y83.2 Surgical operation with anastomosis, bypass or graft as the cause of abnormal reaction of the patient, or of later complication, without mention of misadventure at the time of the procedure; I12.0 Hypertensive chronic kidney disease with stage 5 chronic kidney disease or end stage renal disease; N18.6 End stage renal disease; Z99.2 Dependence on renal dialysis; I48.91 Unspecified atrial fibrillation; J45.909 Unspecified asthma, uncomplicated; Z87.891 Personal history of nicotine dependence
CPT/HCPCS: 80048; 80048 91; 82948; 84132 91; 85025; 85027; 87641; 93005; 94640; 94799; 99202; C1757; C1768; C2628; G0378; J0131; J0690; J1170; J1644; J2250; J2405; J2720; J3010; J7040; S0020

== ENCOUNTER 2017-05-28 07:21 | Emergency (ER) | payer OTHER ==
[~2017-05-28] VITALS: Ht 160 cm; Wt 53.6 kg
[~2017-05-28 07:21] MED LIST changes: +CEPHALEXIN500 MG PO; +ENDOCET 5-3251 EACH PO; +KEFLEX500 MG PO
[2017-05-28 11:21] VITALS: BP 163/109
== END 2017-05-28 11:22 | disposition home or self-care (01) ==
LOC: EME 07:21
DX: S70.02XA Contusion of left hip, initial encounter (principal); S83.92XA Sprain of unspecified site of left knee, initial encounter; S50.312A Abrasion of left elbow, initial encounter; V87.8XXA Person injured in other specified noncollision transport accidents involving motor vehicle (traffic), initial encounter; I12.0 Hypertensive chronic kidney disease with stage 5 chronic kidney disease or end stage renal disease; N18.6 End stage renal disease; Z99.2 Dependence on renal dialysis; M16.0 Bilateral primary osteoarthritis of hip; I51.7 Cardiomegaly; R16.0 Hepatomegaly, not elsewhere classified; Z87.891 Personal history of nicotine dependence; Z85.9 Personal history of malignant neoplasm, unspecified; Z90.710 Acquired absence of both cervix and uterus; Z88.5 Allergy status to narcotic agent; Z88.1 Allergy status to other antibiotic agents; Z88.8 Allergy status to other drugs, medicaments and biological substances
CPT/HCPCS: 73502; 73564; 99281; 99284

== ENCOUNTER 2017-06-06 08:04 | Emergency (ER) | payer OTHER ==
[~2017-06-06] VITALS: Ht 154.9 cm; Wt 55.8 kg
[2017-06-06 09:20] LABS: HEMATOCRIT 30.6 % (36.0-46.0); HEMOGLOBIN 9.9 G/DL (11.9-15.5); MCH 31.1 PG (29.0-34.0); MCHC 32.4 G/DL (30.0-36.0); MCV 96.2 FL (83-99); PLATELET COUNT 151 K/uL (156-360); RBC DIS.WIDTH-CV 17.2 % (11.8-14.6); RBC DIS.WIDTH-SD 58.6 % (39-53); RED BLOOD COUNT 3.18 M/uL (3.80-5.20)
[2017-06-06 09:29] LABS: CHLORIDE 93 mEq/L (99-109); POTASSIUM 4.5 mEq/L (3.7-5.4); SODIUM 140 mEq/L (136-147)
[2017-06-06 09:31] LABS: GLUCOSE 138 mg/dL (70-99)
[2017-06-06 09:35] LABS: GFR ESTIMATE (CALCULATED) 8 mL/min/
[2017-06-06 09:36] LABS: UREA NITROGEN (BUN) 88 mg/dL (9-23)
[2017-06-06] MEDS ORDERED: VENTOLIN HFA18 GM IH (11:41)
[2017-06-06] MEDS ORDERED: ULTRAM50 MG PO (11:41)
[2017-06-06] MEDS ORDERED: VIBRAMYCIN100 MG PO (11:41)
[2017-06-06] MEDS ORDERED: DEBROX15 ML BOTH EARS (12:15)
[2017-06-06 12:19] VITALS: BP 97/69
== END 2017-06-06 12:49 | disposition home or self-care (01) ==
LOC: EME 08:04
PROVIDERS: Nurse Practitioner Family
DX: J32.9 Chronic sinusitis, unspecified (principal); R06.2 Wheezing; N18.6 End stage renal disease; Z99.2 Dependence on renal dialysis; R51 Headache; M25.561 Pain in right knee; M25.562 Pain in left knee; J90 Pleural effusion, not elsewhere classified; Z87.891 Personal history of nicotine dependence; Z88.1 Allergy status to other antibiotic agents; Z88.5 Allergy status to narcotic agent
CPT/HCPCS: 70450; 71046; 73502; 73564; 80048; 85027; 93005; 94640; 99281; 99285

== ENCOUNTER 2017-07-29 08:18 | Day surgery (SDC) | payer OTHER ==
[~2017-07-29 08:18] MED LIST changes: +DEBROX15 ML BOTH EARS; +ULTRAM50 MG PO; +VIBRAMYCIN100 MG PO
[2017-07-29] MEDS ORDERED: SENSIPAR60 MG PO ×2 (08:50→15:29)
[2017-07-29] MEDS ORDERED: KEFLEX500 MG PO (15:31)
[2017-07-29] MEDS ORDERED: PERCOCET 5/31 TABLET PO (15:33)
== END 2017-07-29 10:45 | disposition home or self-care (01) ==
LOC: CATH 08:18
DX: I12.0 Hypertensive chronic kidney disease with stage 5 chronic kidney disease or end stage renal disease (principal); N18.6 End stage renal disease; Z99.2 Dependence on renal dialysis
CPT/HCPCS: 87641; C1750; C1894; J0690; J1644; J2250; J3010; S0020

== ENCOUNTER 2017-07-30 09:08 | Day surgery (SDC) | payer OTHER ==
[~2017-07-30] VITALS: Ht 152.4 cm; Wt 51.1 kg
[~2017-07-30 09:08] MED LIST changes: -DIALYVITE 3,001 EACH PO; +DIALYVITE 801 TABLET PO
[2017-07-30 10:06] LABS: HEMOGLOBIN 10.9 G/DL (11.9-15.5); MCH 29.7 PG (29.0-34.0); MCHC 32.1 G/DL (30.0-36.0); MCV 92.6 FL (83-99); PLATELET COUNT 199 K/uL (156-360); RBC DIS.WIDTH-SD 54.2 % (39-53); RED BLOOD COUNT 3.67 M/uL (3.80-5.20); WHITE BLOOD COUNT 6.9 K/uL (4.1-10.2)
[2017-07-30 10:12] VITALS: BP 183/99
[2017-07-30 10:15] LABS: CHLORIDE 95 MEQ/L (99-109); SODIUM 140 MEQ/L (136-147)
[2017-07-30 10:21] LABS: CREATININE 7.1 MG/DL (0.6-1.3); GFR ESTIMATE (CALCULATED) 8 mL/min/; GLUCOSE 106 mg/dL (70-99); UREA NITROGEN (BUN) 55 mg/dL (9-23)
[2017-07-30 16:39] VITALS: BP 184/111
[2017-07-30 17:24] VITALS: BP 186/109
== END 2017-07-30 17:35 | disposition home or self-care (01) ==
LOC: SDC 09:08
PROVIDERS: Surgery
PROC: 0XP70YZ Removal of Other Device from Left Upper Extremity, Open Approach (ICD-10-PCS; principal; 2017-07-30)
DX: T82.7XXA Infection and inflammatory reaction due to other cardiac and vascular devices, implants and grafts, initial encounter (principal); Y83.2 Surgical operation with anastomosis, bypass or graft as the cause of abnormal reaction of the patient, or of later complication, without mention of misadventure at the time of the procedure; I12.0 Hypertensive chronic kidney disease with stage 5 chronic kidney disease or end stage renal disease; N18.6 End stage renal disease; Z99.2 Dependence on renal dialysis; Z87.891 Personal history of nicotine dependence; I48.91 Unspecified atrial fibrillation; J45.909 Unspecified asthma, uncomplicated
CPT/HCPCS: 71046; 80048; 85027; 93005; J0690; J1170; J1644; J2405; J2720; J3010; S0020

== ENCOUNTER 2017-08-05 19:07 | Emergency (ER) | payer OTHER ==
[~2017-08-05] VITALS: Ht 160 cm; Wt 53.5 kg
[2017-08-05 20:15] LABS: BASOPHIL (%) 0.7 % (0-1); BASOPHIL COUNT 0.1 K/uL (0-0.1); EOSINOPHIL (%) 6.9 % (0-5); EOSINOPHIL COUNT 0.6 K/uL (0-0.3); HEMATOCRIT 31.2 % (36.0-46.0); HEMOGLOBIN 10.4 G/DL (11.9-15.5); IMMATURE GRANULOCYTE (%) 0.2 % (0.0-0.7); LYMPHOCYTE (%) 14.8 % (15-42); LYMPHOCYTE COUNT 1.4 K/uL (1.0-2.8); MCH 30.2 PG (29.0-34.0); MCHC 33.3 G/DL (30.0-36.0); MCV 90.7 FL (83-99); MONOCYTE (%) 5.8 % (3-12); MONOCYTE COUNT 0.5 K/uL (0-0.8); NEUTROPHIL (%) 71.6 % (45-76); NEUTROPHIL COUNT 6.6 K/uL (1.8-6.4); PLATELET COUNT 173 K/uL (156-360); RBC DIS.WIDTH-CV 16.4 % (11.8-14.6); RED BLOOD COUNT 3.44 M/uL (3.80-5.20); WHITE BLOOD COUNT 9.2 K/uL (4.1-10.2)
[2017-08-05 20:28] LABS: ALBUMIN 3.9 g/dL (3.2-4.8); CHLORIDE 96 mEq/L (99-109); SODIUM 140 mEq/L (136-147)
[2017-08-05 20:29] LABS: MAGNESIUM 2.9 mg/dL (1.3-2.7)
[2017-08-05 20:31] LABS: GLUCOSE 132 mg/dL (70-99); TOTAL PROTEIN 8.2 g/dL (6.4-8.3)
[2017-08-05 20:33] LABS: TOTAL BILIRUBIN 0.8 mg/dL (0.0-1.0)
[2017-08-05 20:34] LABS: ALKALINE PHOSPHATASE 161 IU/L (3-129)
[2017-08-05 20:36] LABS: AST (GOT) 13 IU/L (2-34); TROP-I INTERPRETATION NEGATIVE; TROPONIN-I 0.06 ng/mL (0.0-0.30)
[2017-08-05 20:38] LABS: CREATINE KINASE 56 IU/L (1-294); TOTAL CK 56 IU/L (1-294)
[2017-08-05 20:42] LABS: ALT (GPT) < 1 IU/L (3-49); CREATININE 15.7 mg/dL (0.6-1.3); GFR ESTIMATE (CALCULATED) 3 mL/min/; POTASSIUM 6.2 mEq/L (3.7-5.4); UREA NITROGEN (BUN) 114 mg/dL (9-23)
[2017-08-05 20:45] LABS: CKMB RELATIVE INDEX 1.8 (0.0-3.9)
[2017-08-05] MEDS ORDERED: PROAIR HFA8.5 GM IH (21:18)
[2017-08-05] MEDS ORDERED: CARDIZEM60 MG PO (21:21)
[2017-08-05 23:35] VITALS: BP 182/143
== END 2017-08-05 23:59 | disposition left against medical advice (07) ==
LOC: EME 19:07
PROVIDERS: Emergency Medicine
DX: N18.9 Chronic kidney disease, unspecified (principal); E87.5 Hyperkalemia; J90 Pleural effusion, not elsewhere classified; J81.1 Chronic pulmonary edema; I48.91 Unspecified atrial fibrillation; Z99.2 Dependence on renal dialysis; Z87.891 Personal history of nicotine dependence; Z88.1 Allergy status to other antibiotic agents; Z88.5 Allergy status to narcotic agent
CPT/HCPCS: 71045; 80053; 82550; 82553; 83735; 83880; 84484; 85025; 93005; 99281; 99285

== ENCOUNTER 2017-08-06 10:08 | Observation (INO) | payer OTHER ==
[~2017-08-06] VITALS: Ht 154.9 cm; Wt 53.0 kg
[~2017-08-06 10:08] MED LIST changes: +CARDIZEM60 MG PO; +PROAIR HFA8.5 GM IH
[2017-08-06 11:03] LABS: BASOPHIL (%) 0.5 % (0-1); BASOPHIL COUNT 0.1 K/uL (0-0.1); EOSINOPHIL COUNT 0.7 K/uL (0-0.3); HEMATOCRIT 32.2 % (36.0-46.0); HEMOGLOBIN 10.7 G/DL (11.9-15.5); IMMATURE GRANULOCYTE (%) 0.4 % (0.0-0.7); LYMPHOCYTE (%) 12.2 % (15-42); LYMPHOCYTE COUNT 1.3 K/uL (1.0-2.8); MCH 30.1 PG (29.0-34.0); MCHC 33.2 G/DL (30.0-36.0); MCV 90.7 FL (83-99); MONOCYTE (%) 5.8 % (3-12); MONOCYTE COUNT 0.6 K/uL (0-0.8); NEUTROPHIL (%) 75.1 % (45-76); NEUTROPHIL COUNT 8.2 K/uL (1.8-6.4); PLATELET COUNT 187 K/uL (156-360); RBC DIS.WIDTH-CV 16.5 % (11.8-14.6); RED BLOOD COUNT 3.55 M/uL (3.80-5.20); WHITE BLOOD COUNT 10.9 K/uL (4.1-10.2)
[2017-08-06 11:12] LABS: CHLORIDE 96 mEq/L (99-109); SODIUM 143 mEq/L (136-147)
[2017-08-06 11:14] LABS: GLUCOSE 98 mg/dL (70-99)
[2017-08-06 11:17] LABS: CREATININE 16.3 mg/dL (0.6-1.3); GFR ESTIMATE (CALCULATED) 3 mL/min/
[2017-08-06 11:21] LABS: POTASSIUM 6.1 mEq/L (3.7-5.4); UREA NITROGEN (BUN) 118 mg/dL (9-23)
[2017-08-06 14:10] VITALS: BP 181/133
[2017-08-06 19:44] VITALS: BP 156/109
[2017-08-07 00:20] VITALS: BP 159/111
[2017-08-07 04:57] VITALS: BP 136/93
[2017-08-07 05:29] LABS: HEMATOCRIT 29.8 % (36.0-46.0); HEMOGLOBIN 9.6 G/DL (11.9-15.5); MCH 29.5 PG (29.0-34.0); MCHC 32.2 G/DL (30.0-36.0); MCV 91.7 FL (83-99); PLATELET COUNT 156 K/uL (156-360); RBC DIS.WIDTH-CV 16.5 % (11.8-14.6); RBC DIS.WIDTH-SD 54.4 % (39-53); RED BLOOD COUNT 3.25 M/uL (3.80-5.20)
[2017-08-07 05:34] LABS: INTER. NORMALIZED RATIO 2.1
[2017-08-07 05:37] LABS: PTT 41.3 SEC (25-37)
[2017-08-07 06:41] LABS: CHLORIDE 95 MEQ/L (99-109); GLUCOSE 129 mg/dL (70-99); PHOSPHORUS 5.3 mg/dL (2.5-4.9); SODIUM 139 MEQ/L (136-147); UREA NITROGEN (BUN) 64 mg/dL (9-23)
[2017-08-07 06:45] LABS: CREATININE 11.3 MG/DL (0.6-1.3); GFR ESTIMATE (CALCULATED) 5 mL/min/; POTASSIUM 4.7 MEQ/L (3.7-5.4)
[2017-08-07 11:58] VITALS: BP 163/96
[2017-08-07 17:02] VITALS: BP 141/81
[2017-08-07 20:44] VITALS: BP 130/80
== END 2017-08-07 21:00 | disposition left against medical advice (07) ==
LOC: EME 10:08 → EDOF 12:38 → 4EAST 12:38 → ENRESERV 12:49 → CANRESERV 12:49 → ENRESERV 12:50 → 4EAST 13:47
PROVIDERS: Emergency Medicine; Internal Medicine
PROC: 5A1D70Z Performance of Urinary Filtration, Intermittent, Less than 6 Hours Per Day (ICD-10-PCS; principal; 2017-08-06)
DX: E87.79 Other fluid overload (principal); Z91.19 Patient's noncompliance with other medical treatment and regimen; E87.5 Hyperkalemia; I13.2 Hypertensive heart and chronic kidney disease with heart failure and with stage 5 chronic kidney disease, or end stage renal disease; I50.33 Acute on chronic diastolic (congestive) heart failure; N18.6 End stage renal disease; Z99.2 Dependence on renal dialysis; I48.2 Chronic atrial fibrillation; D63.1 Anemia in chronic kidney disease; E87.2 Acidosis; N25.81 Secondary hyperparathyroidism of renal origin; F17.200 Nicotine dependence, unspecified, uncomplicated; Z90.710 Acquired absence of both cervix and uterus; Z82.49 Family history of ischemic heart disease and other diseases of the circulatory system; Z88.1 Allergy status to other antibiotic agents; Z88.8 Allergy status to other drugs, medicaments and biological substances; Z88.5 Allergy status to narcotic agent
CPT/HCPCS: 71045; 80048; 84100; 85025; 85027; 85610; 85730; 93005; 99202; 99281; 99285; G0257; G0378; J0881; J1270; J1644; J2405

== ENCOUNTER 2017-08-14 14:13 | Emergency (ER) | payer OTHER ==
[~2017-08-14] VITALS: Ht 162.6 cm; Wt 51.5 kg
[2017-08-14 14:13] VITALS: BP 0/0
== END 2017-08-14 18:35 ==
LOC: EME 14:13
DX: I46.9 Cardiac arrest, cause unspecified (principal); I12.0 Hypertensive chronic kidney disease with stage 5 chronic kidney disease or end stage renal disease; N18.6 End stage renal disease; Z99.2 Dependence on renal dialysis; J44.9 Chronic obstructive pulmonary disease, unspecified; Z85.9 Personal history of malignant neoplasm, unspecified; Z88.5 Allergy status to narcotic agent; Z88.8 Allergy status to other drugs, medicaments and biological substances; Z88.1 Allergy status to other antibiotic agents
CPT/HCPCS: 94799; 99281; 99285; J0171